=== PATIENT | female | born 1945 | race Caucasian/White ===

== ENCOUNTER → 2016-10-08 | Outpatient (CLI) | payer OTHER, MEDICARE | LOC: BMCIMAGING 16:08 | PROVIDERS: ATTEND Internal Medicine | DX: M25.522 Pain in left elbow (principal) ==

== ENCOUNTER → 2016-11-04 | Outpatient (CLI) | payer OTHER, MEDICARE | LOC: FIMAGING 13:16 | PROVIDERS: ATTEND Podiatrist Foot & Ankle Surgery | DX: S73.102A Unspecified sprain of left hip, initial encounter (principal); S76.312A Strain of muscle, fascia and tendon of the posterior muscle group at thigh level, left thigh, initial encounter ==

== ENCOUNTER → 2016-11-28 | Outpatient (CLI) | payer OTHER, MEDICARE | LOC: BMCIMAGING 09:32 | PROVIDERS: ATTEND Orthopaedic Surgery | DX: M25.552 Pain in left hip (principal) ==

== ENCOUNTER → 2016-12-05 | Outpatient (CLI) | payer OTHER, MEDICARE | LOC: BMCIMAGING 13:24 | PROVIDERS: ATTEND Internal Medicine | DX: Z12.31 Encounter for screening mammogram for malignant neoplasm of breast (principal) | CPT/HCPCS: G0202 ==

== ENCOUNTER → 2017-01-15 | Outpatient (CLI) | payer OTHER, MEDICARE | LOC: FIMAGING 09:52 | PROVIDERS: ATTEND Orthopaedic Surgery | DX: Z09 Encounter for follow-up examination after completed treatment for conditions other than malignant neoplasm (principal); Z96.642 Presence of left artificial hip joint ==

== ENCOUNTER 2017-01-28 08:10 | Inpatient (IN) | payer OTHER, MEDICARE ==
--- NOTE | 2017-01-28 06:29 | PDHPUP ---
History & Physical Update H&P update statement: This history and physical update is based on an assessment of the patient which was completed after admission or registration (within 24 hours), but prior to the surgery/procedure.
--- NOTE | 2017-01-28 06:31 | PDIAF ---
- Diagnosis Diagnosis: left hip djd Code Status: Full Code - Medication Management Discharge Medications: Medications to Continue on Transfer C/E/Zn/Cu/OM3/DHA/EPA/LUT/ZEAX [Preservision Areds 2 Softgel] 1 each PO DAILY [Last Taken Unknown] Dextran 70/Hypromellose/Pf [Genteal Tears 0.1%-0.3% Drop] 1 each OP Q2 PRN 01/04 [Last Taken Unknown] Fluticasone Nasal [Flonase Nasal [place] (RX)] 1 sprays EACHNARE DAILY PRN [Last Taken Unknown] Herbals/Supplements -Info Only 1 ea PO DAILY 01/04/17 [Last Taken Unknown] Ketotifen Fumarate [Zaditor] 1 drop EACHEYE BID PRN 01/04/17 [Last Taken Unknown ] Multivitamins [Multivitamin (*)] 1 each PO DAILY 01/04/17 [Last Taken Unknown] Naphazoline HCl/Glycerin [Clear Eyes Redness Relief Drop] 1 drop OP DAILY PRN [Last Taken Unknown] Discharge Medications: Refer to the Discharge Home Medication list for PRN reason. - Orders Services needed: Physical Therapy Diet Recommendation: no restrictions on diet Diet Texture: Regular Texture Diet Activity/Weight Bearing Restrictions: wbat. anterior hip precautions. daily dressing changes. may shower, no soaking. jaun hose x 2 weeks. aspirin 325 mg po daily. f/u at two weeks. seek attn for increasing pain, complaints, s/s infection - Follow Up Care Current Providers and Referrals: Paul Martinez MD [Primary Care Provider] -
[2017-01-28] MEDS ORDERED: FAMOTIDINE 20 MG TAB PO ONE (08:17)
[2017-01-28] MEDS ORDERED: TRANEXAMIC ACID 3,000 MG in NS 50 ML IRR ONE (08:17)
[2017-01-28] MEDS ORDERED: ACETAMINOPHEN 325 MG TAB PO ONE (08:17)
[2017-01-28] MEDS ORDERED: TRANEXAMIC ACID 1 MG in NS 100 ML IV ONE (08:17)
[2017-01-28] MEDS ORDERED: ROPIVACAINE 0.2% 80 MG, EPINEPHrine 0.2 MG, KETOROLAC TROMETHAMINE 30 MG, morphINE 10 M... IU ONE (08:17)
[2017-01-28] MEDS ORDERED: ceFAZolin 2 GM/DEXTROSE 100 ML IV ONE (08:17)
[2017-01-28] MEDS ORDERED: TRANEXAMIC ACID 1,180 MG in NS 100 ML IV ONE (08:30)
[2017-01-28] MEDS ORDERED: LIDOCAINE 1% 2 ML INJ ID PRN (08:32)
[2017-01-28] MEDS ORDERED: LR 1,000 ML IV ONE (08:32)
[2017-01-28] MEDS ORDERED: THROMBIN (BOVINE) 5,000 UNIT VIAL TP ONE (08:37)
[2017-01-28] MEDS ORDERED: CALCIUM CHLORIDE 1 GM/10 ML INJ ONE (08:37)
[2017-01-28] MEDS ORDERED: ceFAZolin 1 GM/5 ML SYR ONE (08:38)
[2017-01-28] MEDS ORDERED: LACTULOSE 20 GM/30 ML UDCUP PO PRN (09:08)
[2017-01-28] MEDS ORDERED: PROMETHAZINE HCL 25 MG SUPPR PR PRN (09:08)
[2017-01-28] MEDS ORDERED: PROMETHAZINE HCL 25 MG/ML INJ IVP PRN (09:08)
[2017-01-28] MEDS ORDERED: PHARMACY PAIN CONSULT 1 EA MISC PRN (09:08)
[2017-01-28] MEDS ORDERED: Ketotifen Fumarate [Zaditor] 1 DROP EACHEYE PRN (09:08)
[2017-01-28] MEDS ORDERED: NAPHAZOLINE HCL OP PRN (09:08)
[2017-01-28] MEDS ORDERED: oxyCODONE IR 5 MG TAB PO PRN (09:08)
[2017-01-28] MEDS ORDERED: METOCLOPRAMIDE 10 MG/2 ML VIAL IVP PRN (09:08)
[2017-01-28] MEDS ORDERED: ONDANSETRON DISINTEGRATING 4 MG TAB PO PRN (09:08)
[2017-01-28] MEDS ORDERED: DIPHENOXYLATE/ATROPINE LOMOTIL 1 TAB PO PRN (09:08)
[2017-01-28] MEDS ORDERED: diphenhydrAMINE 25 MG CAP PO PRN (09:08)
[2017-01-28] MEDS ORDERED: ONDANSETRON 4 MG/2 ML VIAL IVP PRN (09:08)
[2017-01-28] MEDS ORDERED: DIAZEPAM 5 MG TAB PO PRN (09:08)
[2017-01-28] MEDS ORDERED: TEMAZEPAM 15 MG CAP PO PRN (09:08)
[2017-01-28] MEDS ORDERED: traMADol 50 MG TAB PO PRN (09:08)
[2017-01-28] MEDS ORDERED: MAGNESIUM HYDROXIDE 30 ML UDCUP PO PRN (09:08)
[2017-01-28] MEDS ORDERED: BISACODYL 10 MG SUPP PR PRN (09:08)
[2017-01-28] MEDS ORDERED: POLYETHYLENE GLYCOL 3350 17 GM PKT PO PRN (09:08)
[2017-01-28] MEDS ORDERED: GLYCERIN OP PRN (09:08)
[2017-01-28] MEDS ORDERED: LR 1,000 ML IV SCH (09:30)
[2017-01-28] MEDS ORDERED: MIDAZOLAM 2 MG/2 ML VIAL IVP ONE (09:51)
--- NOTE | 2017-01-28 09:51 | PDANEPAE ---
ANE Past Medical History - Cardiovascular History Hx Hypertension: No Hx Arrhythmias: No Hx Chest Pain: No Hx Coronary Artery / Peripheral Vascular Disease: No Hx CHF / Valvular Disease: No Hx Palpitations: No - Pulmonary History Hx COPD: No Hx Asthma/Reactive Airway Disease: No Hx Recent Upper Respiratory Infection: No Hx Oxygen in Use at Home: No Hx Sleep Apnea: No Sleep Apnea Screening Result - Last Documented: Negative - Neurologic History Hx Cerebrovascular Accident: No Hx Seizures: No Hx Dementia: No - Endocrine History Hx Diabetes: No - Renal History Hx Renal Disorders: No - Liver History Hx Hepatic Disorders: No - Neurological & Psychiatric Hx Hx Neurological and Psychiatric Disorders: No - Cancer History Hx Cancer: No - Congenital Disorder History Hx Congenital Disorders: No - GI History Hx Gastrointestinal Disorders: No Gastrointestinal History Comment: N-SAID TRIGGERS HEARTBURN - Other Health History Other Health History: AWAIS CATARACTS. ECZEMA DURING WINTER MONTHS - Chronic Pain History Chronic Pain: Yes (LT HIP) - Surgical History Prior Surgeries: TUBAL LIGATION 1988. D&C ANE Review of Systems - Exercise capacity METS (RN): 4 METS ANE Patient History - Allergies Allergies/Adverse Reactions: No Known Allergies Allergy (Unverified 08/07/09 20:08) - Home Medications Home Medications: C/E/Zn/Cu/OM3/DHA/EPA/LUT/ZEAX [Preservision Areds 2 Softgel] 1 each PO DAILY [Last Taken 01/20/17] Dextran 70/Hypromellose/Pf [Genteal Tears 0.1%-0.3% Drop] 1 each OP Q2 PRN 01/04 [Last Taken 01/28/17 07:00] Fluticasone Nasal [Flonase Nasal [place] (RX)] 1 sprays EACHNARE DAILY PRN [Last Taken 01/20/17] Herbals/Supplements -Info Only 1 ea PO DAILY 01/04/17 [Last Taken 01/20/17] Ketotifen Fumarate [Zaditor] 1 drop EACHEYE BID PRN 01/04/17 [Last Taken ] Multivitamins [Multivitamin (*)] 1 each PO DAILY 01/04/17 [Last Taken 01/20/17] Naphazoline HCl/Glycerin [Clear Eyes Redness Relief Drop] 1 drop OP DAILY PRN [Last Taken 01/20/17] - NPO status NPO Since - Liquids (Date): 01/27/17 NPO Since - Liquids (Time): 00:00 NPO Since - Solids (Date): 01/27/17 NPO Since - Solids (Time): 18:15 - Smoking Hx Smoking Status: Former smoker ANE Labs/Vital Signs - Vital Signs Blood Pressure: 154/83 Heart Rate: 100 Respiratory Rate: 15 O2 Sat (%): 96 Height: 165.1 cm Weight: 59.421 kg
[2017-01-28] MEDS ORDERED: fentaNYL 100 MCG/2 ML INJ ONE (10:01)
[2017-01-28] MEDS ORDERED: MIDAZOLAM 2 MG/2 ML VIAL ONE ×2 (10:02→10:04)
[2017-01-28] MEDS ORDERED: PROPOFOL/EMULSION 500 MG/50 ML BOTTLE IV ONE (10:02)
--- NOTE | 2017-01-28 11:30 | POSTANESTH ---
Post Anesthetic Evaluation Respiratory Status: Normal, Stable Level of Consciousness/Mental Status: Can Participate in Eval Pain Control: Adequate, Prn Tx Ordered Complications Possibly Related to Anesthesia: None Noted (iv general and sab tolerated well)
[2017-01-28] MEDS ORDERED: NALOXONE HCL 0.4 MG/ML INJ IVP PRN (11:31)
[2017-01-28] MEDS: ACETAMINOPHEN 325 MG TAB PO SCH ×3 (14:27→23:12)
[2017-01-28] MEDS: ceFAZolin 2 GM/DEXTROSE 100 ML IV SCH (16:50)
[2017-01-28] MEDS: ASPIRIN 325 MG TAB PO SCH (20:13)
[2017-01-28] MEDS: FAMOTIDINE 20 MG TAB PO SCH (20:14)
[2017-01-28] MEDS: SENNOSIDES/DOCUSATE SODIUM TAB PO SCH (20:14)
[2017-01-28 23:05] VITALS: O2SAT 93
[2017-01-29] MEDS: ceFAZolin 2 GM/DEXTROSE 100 ML IV SCH (01:49)
[2017-01-29 04:51] LABS: HEMATOCRIT 33.1 % (38.0-47.0); HEMOGLOBIN 11.4 g/dL (12.6-16.3)
[2017-01-29] MEDS: ACETAMINOPHEN 325 MG TAB PO SCH ×2 (05:28→11:07)
[2017-01-29 07:16] VITALS: BP 121/71; PULSE 79; RESP 14; TEMP 97.8
--- NOTE | 2017-01-29 07:27 | PDIAF ---
- Diagnosis Diagnosis: left hip djd Code Status: Full Code - Medication Management Discharge Medications: Medications to Continue on Transfer C/E/Zn/Cu/OM3/DHA/EPA/LUT/ZEAX [Preservision Areds 2 Softgel] 1 each PO DAILY [Last Taken 01/20/17] Dextran 70/Hypromellose/Pf [Genteal Tears 0.1%-0.3% Drop] 1 each OP Q2 PRN 01/04 [Last Taken 01/28/17 07:00] Fluticasone Nasal [Flonase Nasal [place]] 1 sprays EACHNARE DAILY PRN 01/04/17 [ Last Taken 01/20/17] Herbals/Supplements -Info Only 1 ea PO DAILY 01/04/17 [Last Taken 01/20/17] Ketotifen Fumarate [Zaditor] 1 drop EACHEYE BID PRN 01/04/17 [Last Taken ] Multivitamins [Multivitamin (*)] 1 each PO DAILY 01/04/17 [Last Taken 01/20/17] Naphazoline HCl/Glycerin [Clear Eyes Redness Relief Drop] 1 drop OP DAILY PRN [Last Taken 01/20/17] Aspirin [Aspirin 325 mg (*)] 325 mg PO DAILY #0 tab 01/29/17 [Last Taken Unknown ] oxyCODONE IR [Oxycodone Ir (*)] 5 - 10 mg PO Q3HRS PRN #70 tab 01/29/17 [Last Taken Unknown] traMADol [Ultram 50 mg (*)] 50 mg PO Q6HRS PRN #70 tab 01/29/17 [Last Taken Unknown] Discharge Medications: Refer to the Discharge Home Medication list for PRN reason. - Orders Services needed: Physical Therapy Diet Recommendation: no restrictions on diet Diet Texture: Regular Texture Diet Activity/Weight Bearing Restrictions: wbat. anterior hip precautions. daily dressing changes. may shower, no soaking. jaun hose x 2 weeks. aspirin 325 mg po daily. f/u at two weeks. seek attn for increasing pain, complaints, s/s infection - Follow Up Care Current Providers and Referrals: Paul Martinez MD [Primary Care Provider] -
[2017-01-29] MEDS: ASPIRIN 325 MG TAB PO SCH (08:30)
[2017-01-29] MEDS: FAMOTIDINE 20 MG TAB PO SCH (08:30)
[2017-01-29] MEDS: SENNOSIDES/DOCUSATE SODIUM TAB PO SCH (08:31)
--- NOTE | 2017-01-29 13:47 | GDS ---
[f rep st] DISCHARGE SUMMARY ADMITTING DIAGNOSES: Left hip degenerative joint disease. DISCHARGE DIAGNOSIS: Left hip degenerative joint disease. PROCEDURE: Left total hip arthroplasty. INDICATIONS: This patient is a 71-year-old woman with end-stage arthritis to her left hip. Clinica l and radiographic features are consistent with this. She has failed all attempts at conservative m anagement. I have therefore recommended operative intervention with total hip replacement. She understood the risks, benefits and alternatives, and wished to proceed. Written consent was sig monica and placed in the patient's chart. HOSPITAL COURSE: The patient was admitted to the hospital floor after uncomplicated total hip arthr oplasty. She tolerated the procedure well. Postoperatively, she had no complications. At the time of discharge, she is tolerating an oral diet. Her pain is well controlled on oral medic ine. She is voiding without difficulty. Dressings are clean, dry, and intact. She has no calf swe lling or tenderness. Negative Kate's bilaterally. X-rays are stable with no fracture lucency and concentric reduction. DISCHARGE INSTRUCTIONS: She is weightbearing as tolerated. Anterior hip precautions. Daily dressi ng changes. May shower without the bandage. No soaking or immersion. Follow up in 2 weeks. Seek attention for increasing redness, swelling, drainage, discharge, or other sign or symptom of infecti on. DISCHARGE MEDICATIONS: Oxycodone 5 mg 1-2 every 3 hours p.r.n. pain, tramadol 50 mg 1-2 every 6 allison rs p.r.n. pain and aspirin 325 mg p.o. daily. /[id number]/MODL
== END 2017-01-29 11:29 | disposition home or self-care (01) | DRG 470 ==
LOC: F3N 08:10
PROVIDERS: ADMIT Orthopaedic Surgery; ATTEND Orthopaedic Surgery
PROC: 0SRB04Z Replacement of Left Hip Joint with Ceramic on Polyethylene Synthetic Substitute, Open Approach (ICD-10-PCS; principal; 2017-01-28 09:45)
DX: M16.12 Unilateral primary osteoarthritis, left hip (principal); Z87.891 Personal history of nicotine dependence
CPT/HCPCS: 97110-GP; 97116-GP; 97161-GP; 97165-GO; 97530-GP; C1713; G8978-GP-CJ; G8979-GP-CI; G8980-GP-CI; G8987-GO-CI; G8988-GO-CI; G8989-GO-CI; J0171; J0690; J1885; J2250; J2704; J2795; J3010

== ENCOUNTER → 2017-03-14 | Outpatient (CLI) | payer OTHER, MEDICARE | LOC: BMCIMAGING 08:15 | PROVIDERS: ATTEND Orthopaedic Surgery | DX: Z47.1 Aftercare following joint replacement surgery (principal); Z96.642 Presence of left artificial hip joint ==

== ENCOUNTER → 2017-04-18 | Outpatient (CLI) | payer OTHER, MEDICARE | LOC: BMCIMAGING 08:53 | PROVIDERS: ATTEND Orthopaedic Surgery | DX: Z47.1 Aftercare following joint replacement surgery (principal); Z96.642 Presence of left artificial hip joint ==

== ENCOUNTER → 2017-07-18 | Outpatient (CLI) | payer OTHER, MEDICARE | LOC: BMCIMAGING 07:55 | PROVIDERS: ATTEND Orthopaedic Surgery | DX: Z47.1 Aftercare following joint replacement surgery (principal); Z96.642 Presence of left artificial hip joint ==

== ENCOUNTER → 2017-12-31 | Outpatient (CLI) | payer OTHER, MEDICARE | LOC: BMCIMAGING 12:21 | PROVIDERS: ATTEND Internal Medicine | DX: Z12.31 Encounter for screening mammogram for malignant neoplasm of breast (principal) ==

== ENCOUNTER → 2018-08-07 | Outpatient (CLI) | payer OTHER, MEDICARE | LOC: BMCIMAGING 14:37 | PROVIDERS: ATTEND Internal Medicine Geriatric Medicine | DX: Z13.820 Encounter for screening for osteoporosis (principal); M81.0 Age-related osteoporosis without current pathological fracture; Z78.0 Asymptomatic menopausal state; Z96.642 Presence of left artificial hip joint ==

== ENCOUNTER → 2018-08-10 | Outpatient (CLI) | payer OTHER, MEDICARE | LOC: FIMAGING 09:32 | DX: M50.31 Other cervical disc degeneration, high cervical region (principal); M53.82 Other specified dorsopathies, cervical region; M51.34 Other intervertebral disc degeneration, thoracic region; M53.84 Other specified dorsopathies, thoracic region ==